=== PATIENT | male | born 1965 | race Caucasian/White ===

== ENCOUNTER → 2017-11-12 | Outpatient (CLI) | payer OTHER ==
[~2017-11-12] VITALS: Ht 182.9 cm; Wt 129.3 kg
[~2017-11-12] MED LIST: ANDROGEL75 GM TOP; ASPIR 8181 M1 PO; CETIRIZINE HCL5 MG PO; CIALIS10 MG PO; CRESTOR10 MG PO; VYVANSE70 MG PO
--- NOTE | ~2017-11-12 | CATHLAB ---
[facility] [address] [place] [address] INVASIVE PROCEDURE REPORT Name: BASILIOBRITT LISA [facility] #: [facility] [id number] Admission: 11/12/17 Attend Phys: Gio Loya Discharge: Date of : 63 Date of Service: 11/15/17 1648 Report #: [id number] THIS REPORT FOR: //name// APPROVED REPORT Study performed: 11/12/2017 10:02:13 Patient Details Patient Status: Out-Patient Room #: The patient is a 52 year-old male Event Personnel Gio Cazares Barn Manager, Fiona Lovell RN RN, Yonatan Siddiqui, Christina Larkin Monitor Procedures Performed Left Heart Cath w/or w/o Coronaries [id number] [facility], supervision of conscious sedation Indication Positive stress test, Chest pain Procedure Narrative The Right Groin^ was infiltrated with 1% Lidocaine subcutaneous anesthesia. A PINNACLE 4FR Sheath #[id number] sheath was inserted into the RFA^. Coronary angiography was performed using coronary diagnostic catheters. The right coronary system was accessed and visualized with a JR4 catheter. The left coronary system was accessed and visualized with a JL4 catheter. The left ventricle was accessed and visualized with a PIGTAIL catheter. Left ventricular/Aortic Valve gradient assessed via catheter pullback. Hemostasis was obtained with manual pressure following sheath removal without any complications. There was no hematoma. Intraoperative Conscious Sedation Sedation start time: 10.15 Case end Time: 10.33 Fluoro Time: 3.43 minutes Dose: DAP 6652.10 cGycm2 843 mGy Contrast Type and Amount: Omnipaque 50 ml Coronary Angiography The patient's coronary anatomy is right dominant. [facility] [place] [address] [place] [address] INVASIVE PROCEDURE REPORT Name: BRITT RICHMOND Room #: REG [facility]#: [id number] Admission: 11/12/17 Attend Phys: Gio Loya Discharge: Date of : 63 Date of Service: 11/15/17 1648 Report #: [id number] Diagnostic Cath Left Main Normal origin large caliber has a proximal 50% taper. And continues on giving rise to left anterior descending left circumflex without significant lesions. LAD Small to moderate caliber vessel which courses in the anterior interventricular sulcus gives rise to first diagonal branch and it is free of significant high-grade lesions it tapers to a very small caliber vessel terminating as a bifurcating vessel at the apex Diagonal 1 Small-caliber vessel which has a mild tapering at its origin and then continues along the anterolateral wall free of high-grade disease Circumflex a moderate caliber vessel which essentially is a lateral wall marginal branch. It then terminates as a small caliber vessel prior to reaching the posterior aspect of left ventricle Right Coronary Large-caliber vessel of normal origin courses posteriorly in the AV groove giving rise to small RV marginal branches. It then gives rise to posterior descending artery to small posterolateral branches and posterior wall branches free of high-grade disease R PDA Small-caliber vessel which courses in the posterior interventricular sulcus after arising from a right coronary artery free of high-grade disease Left Ventriculography Left Ventriculography was not performed. Hemodynamics The aortic pressure is 130/82 mmHg with a mean of 97 mmHg. The left ventricular pressure is 112/14 mmHg with a mean of mmHg. The left ventricular end diastolic pressure is 25 mmHg. Conclusion 1. Coronary artery disease, mild, nonobstructive 2. Abnormal he whether demonstrated mildly elevated left ventricular end-diastolic pressures Recommendations Cardiac Risk Reduction Program <ELECTRONICALLY SIGNED> By: Gio Cazares MD 11/15/17 1648 47 47 Gio Cazares MD /INF
[2017-11-12 08:23] VITALS: BP 115/81
[2017-11-12 08:55] LABS: HEMATOCRIT 43.9 % (42.0-52.0); HEMOGLOBIN 15.2 gm/dL (14.0-18.0); MCH 29.9 pg (26.0-34.0); MCHC 34.7 g/dL (28.0-37.0); MCV 86.3 fL (80.0-100.0); RBC 5.09 mil/uL (4.50-6.00); RDW 14.2 % (10.5-14.5); WBC 8.9 thou/uL (4.0-11.0)
[2017-11-12 09:04] LABS: POTASSIUM 4.1 mmol/L (3.5-5.1)
[2017-11-12 09:16] LABS: PROTIME 10.5 Seconds (9.3-11.4)
== END | disposition home or self-care (01) ==
LOC: CATH 08:05
PROVIDERS: Internal Medicine
DX: I25.10 Atherosclerotic heart disease of native coronary artery without angina pectoris (principal); I50.1 Left ventricular failure, unspecified; E78.5 Hyperlipidemia, unspecified; K21.9 Gastro-esophageal reflux disease without esophagitis; E66.09 Other obesity due to excess calories; Z82.49 Family history of ischemic heart disease and other diseases of the circulatory system; Z98.890 Other specified postprocedural states; Z79.899 Other long term (current) drug therapy; Z79.82 Long term (current) use of aspirin

== ENCOUNTER → 2019-12-07 | Outpatient (CLI) | payer OTHER | LOC: SJCVCIMAG 08:07 | PROVIDERS: ATTEND Internal Medicine | DX: I42.9 Cardiomyopathy, unspecified (principal); I50.20 Unspecified systolic (congestive) heart failure; I44.7 Left bundle-branch block, unspecified; Z79.82 Long term (current) use of aspirin; Z79.899 Other long term (current) drug therapy ==